=== PATIENT | female | born 1940 | race Caucasian/White ===

== ENCOUNTER → 2021-02-17 | Outpatient (CLI) | payer MEDICARE, OTHER ==
[~2021-02-17] MED LIST: ANTIVERT 25MG T25 MG PO; ARTIFICIAL TEAR15 M2 EYELF; ATORVASTATIN CA20 MG PO; BUTALB-ACETAMI1 EAC1 PO; COZAAR50 MG PO; CYCLOBENZAPRINE10 MG PO; CYMBALTA 20 MG20 MG PO; DIOVAN80 MG PO; DOXYCYCLINE HY100 MG PO; ECOTRIN81 MG PO; FLORANEX GRANU1 EACH PO; LOPRESSOR 25 MG25 MG PO; LOPRESSOR 50 MG50 MG PO; MACROBID 100 M100 M1 PO; ONDANSETRON ODT4 MG SL; VANCOMYCIN HCL125 MG PO; ZOFRAN4 MG PO
== END ==
LOC: RAD 12:06
DX: M54.9 Dorsalgia, unspecified (principal); M46.1 Sacroiliitis, not elsewhere classified
CPT/HCPCS: 72202